=== PATIENT | male | born 1935 | race Caucasian/White ===

== ENCOUNTER → 2017-03-14 | Outpatient (CLI) | payer MEDICARE, OTHER ==
[2014-12-29 10:28] VITALS: BP 146/77
[~2017-03-14] MED LIST: ATOR40TA PO; ESOM40CA PO; FLUO20CA16 PO; GABA-585 PO; IOHEXOL 240 MG/ML 50ML VIAL. ONE; IOHEXOL 300 MG/ML 75 ML VIAL. IV ONE; METF500T4 PO; MOXI3DRO2 LEFTEYE; MOXI3DRO2 RIGHTEYE; NEPA1.7D LEFTEYE; NEPA1.7D RIGHTEYE; PIOG1TAB24 PO; PRED5DRO16 LEFTEYE; PRED5DRO16 RIGHTEYE; SITA50TA PO; TADA5TAB PO; TOLT4CAP PO; other
[2017-03-14 10:18] LABS: CREATININE 0.8 mg/dL (0.7-1.3); GFR 92.8
--- NOTE | 2017-03-14 12:39 | RAD ---
CT scan of the chest, abdomen and pelvis with contrast 03/14/2017 Clinical history: Unexplained weight loss. Technique: After the oral and intravenous administration of contrast, contiguous, 3 mm axial sections were obtained through the chest, abdomen and pelvis. 75 cc of Omnipaque 300 were administered intravenously during this examination. One or more of the following individualized dose reduction techniques were utilized for this study: 1. Automated exposure control. 2. Adjustment of the mA and/or kV according to patient size. 3. Use of iterative reconstruction technique. Findings: No previous imaging studies are available for comparison. Mild to moderate atherosclerotic plaque formation is seen involving the thoracic aorta and its branches. The thoracic aorta is tortuous but tapers normally. The heart is mildly enlarged. Small calcified hilar and mediastinal lymph nodes are seen. No hilar, mediastinal or axillary lymphadenopathy is noted. Dependent subsegmental atelectasis is seen involving both lungs. Calcified pleural plaques are seen bilaterally. No acute pulmonary infiltrate is seen. No pleural effusion or pneumothorax is noted. The liver, spleen, pancreas, adrenal glands and left kidney are within normal limits. A 1.8 cm rounded low-attenuation lesion is seen involving the midpole of the right kidney. This likely represents a cyst. Moderate atherosclerotic calcification of the abdominal aorta and its branches is seen. The abdominal aorta tapers normally. The gallbladder is well-distended. No free fluid or free air is seen within the abdomen. There is no evidence of bowel obstruction. Air and stool is seen throughout the colon. No retroperitoneal lymphadenopathy is seen. The appendix is well-visualized and is within normal limits. Images through the pelvis demonstrate the urinary bladder distended with urine. The prostate gland is enlarged likely related to BPH. Surgical clips are seen consistent with bilateral inguinal herniorrhaphies. Degenerative changes are seen involving the thoracic and lumbar spine and both hips. Impression: No acute abnormality is seen.
--- NOTE | 2017-03-14 12:56 | RAD ---
CT scan of the neck with contrast 03/14/2017 Clinical history: Difficulty swallowing and weight loss. Technique: After the intravenous administration of 75 cc of Omnipaque 300, contiguous, 3 mm axial sections were obtained through the neck. One or more of the following individualized dose reduction techniques were utilized for this study: 1. Automated exposure control. 2. Adjustment of the mA and/or kV according to patient size. 3. Use of iterative reconstruction technique. Findings: The mucosal structures of the nasopharynx, oropharynx, hypopharynx and larynx are within normal limits. The parotid and submandibular glands are within normal limits. The thyroid gland is heterogeneous. Moderate atherosclerotic calcification is seen in the region of the carotid bifurcations. Degenerative changes are seen involving the uncovertebral and facet joints throughout the cervical disc spaces. Impression: No acute abnormality is seen.
== END | disposition home or self-care (01) ==
LOC: CT 09:09
PROVIDERS: ATTEND Family Medicine
DX: R13.10 Dysphagia, unspecified (principal); R63.4 Abnormal weight loss
CPT/HCPCS: 36415; 70491; 71260; 74177; 82565; Q9966; Q9967